=== PATIENT | male | born 1960 | race Caucasian/White ===

== ENCOUNTER → 2017-06-18 | Outpatient (CLI) | payer OTHER ==
--- NOTE | 2017-06-18 14:49 | DIAGNOSTIC IMAGING REPORT ---
Napoleon BAKER SHLDR,HIP,KNEE CLINICAL HISTORY: 56 years-old Male presenting with DJD RT HIP. COMPARISON: None. PROCEDURE: The risks, benefits, and alternatives to the procedure were discussed with the patient. Written informed consent was obtained. The patient was placed supine on the fluoroscopy table, and a right hip injection was performed under fluoroscopic guidance. The area was prepped and draped in the usual sterile fashion. The skin and soft tissues anesthetized with local 1% lidocaine. The right hip joint was accessed utilizing a 22-gauge needle. Approximately 1 mL of Optiray 300 was injected into the joint space under fluoroscopic guidance to confirm intra-articular positioning. Subsequently, a 10 mL mixture containing 8 mL of 0.5% Bupivacaine and 2 mL of betamethasone was injected into the joint. The procedure was well tolerated without immediate complication. Fluoroscopy dosage (mGy): Not available. Fluoroscopy time: 15 seconds. Number of fluoroscopic spot images: 0. IMPRESSION: Successful injection of the right hip under fluoroscopic guidance. Electronically signed by: Vern Turcios M.D. 06/18/2017 2:48 PM Dictated Date/Time: 06/18/2017 2:47 PM
== END | disposition home or self-care (01) ==
LOC: C.RADBC 14:07
PROVIDERS: ATTEND Orthopaedic Surgery
DX: M16.11 Unilateral primary osteoarthritis, right hip (principal)

== ENCOUNTER 2019-01-24 09:01 | Inpatient (IN) ==
--- NOTE | 2018-12-29 08:42 | PAT Medication Instructions ---
Medication Instructions Date of Service December 29, 2018 Home Medications ibuprofen [Advil] 600 mg PO Q6H PRN meloxicam 15 mg PO QAM multivitamin 1 tab PO QAM omega 6-bfj-sqi-fish oil [Fish Oil] 1 cap PO QAM pantoprazole 40 mg PO BID ASK your surgeon for instructions ibuprofen [Advil] 600 mg PO Q6H PRN meloxicam 15 mg PO QAM STOP taking 2 weeks before surgery (or as soon as possible if surgery is within 2 weeks) omega 4-dzr-zfu-fish oil [Fish Oil] 1 cap PO QAM DO NOT take the morning of surgery multivitamin 1 tab PO QAM Take morning of surgery With a small sip of water, OTHERWISE NOTHING TO EAT OR DRINK AFTER MIDNIGHT: pantoprazole 40 mg PO BID Take evening before surgery pantoprazole 40 mg PO BID Other Notes If you have any questions please call us at [phone] or [phone] or [phone] or [phone]
--- NOTE | 2018-12-29 11:26 | Anesthesiology Consultation ---
Date of Service December 29, 2018 Assessment & Plan (1) Encounter for pre-operative examination: Abnormal preop EKG: reviewed with Dr. Liu- recommendation for PCP to review/comment if further cardiac evaluation/testing needed from their perspective. PCP reviewed- recommended stress test prior to surgery (done 01/09/19- no evidence of ischemia). Reviewed by PCP: "okay to clear." Chart Review Chart Review: Acceptable Risk for Surgery and Patient seen in Pre Admission Testing Teaching & Discussion Pre-Anesthesia Teaching/Discussion Notes: Instructed NPO after midnight before surgery,except medications with 15 cc of water. Medication instructions provided according to the PAT guidelines. History Surgery Operation Date: 01/24/19 07:15 Proposed Procedures p Right Anterior Total Hip Arthroplasty - Roberto Espinal DO Height/Weight Height: 6 ft Weight: 88.3 kg Allergies Allergy/AdvReac Type Severity Reaction Status Date / Time No Known Allergies Allergy Verified 12/20/18 09:05 Medications Home Medications Medication Instructions Recorded Confirmed Last Taken ibuprofen [Advil] 600 mg PO Q6H PRN 12/20/18 12/20/18 Unknown meloxicam 15 mg PO QAM 12/20/18 12/20/18 Unknown multivitamin 1 tab PO QAM 12/20/18 12/20/18 Unknown omega 2-cth-tzm-fish oil [Fish Oil] 1 cap PO QAM 12/20/18 12/20/18 Unknown pantoprazole 40 mg PO BID 12/20/18 12/20/18 Unknown Past Medical History Medical History GERD (gastroesophageal reflux disease) controlled Hiatal hernia Osteoarthritis Exercise / Class Metabolic Activity II 4-5 Yardwork/Stairs/Walk up hill Past Family History Family History Mother Family history of diabetes mellitus Past Surgical History Surgical History History of colonoscopy History of esophagogastroduodenoscopy (EGD) Hx of vasectomy Past Anesthesia History No Hx of Anesthesia Complications and No Family Hx of Anesthesia Complications History of PONV No Hx of PONV and No Hx of Motion Sickness Social History Smoking Status: Never smoker Do You Dip or Chew Tobacco: No Hx Alcohol Use: Yes Alcohol type: beer, wine and hard liquor alcohol intake frequency: a few times a week Hx Substance Use: No Review of Systems Reflux controlled. Patient denies chest pain, shortness of breath, dyspnea on exertion, cough, wheezing, palpitations. Physical Exam Vital Signs VITALS BP 120/76 P 62 TEMP 98.4 SP02 97%RA RESP 16 PHYSICAL Full neck and c-spine range of motion. Full TMJ range of motion. TMD 3 finger breaths Mallampati Score 2 Dentition: intact, crown on side Lungs: clear throughout to auscultation Cardiac: regular rate and rhythm, no murmurs noted Spine: normal Carotid arteries: negative bruit Extremities: no edema Testing Laboratory Results Blood Type O Positive 12/29/18 11:52 Antibody Screen NEGATIVE 12/29/18 11:52 12/30/18 WBC 7.8 H/H 15.6/45.8 PLATELETS 230 SODIUM 137 POTASSIUM 4.1 CHLORIDE 101 CO2 30 BUN 21 CREATININE 1.22 GLUCOSE 88 PT 11.3 PTT 30.5 INR 1.1 HGBA1C 5.2% UA negative Electrocardiogram Date: 12/29/18 SR with PAC's at 65bpm. TWA, consider lateral ischemia. *Prolonged QT* Chest X-Ray Date: 12/29/18 Findings: + NAD Stress Test Date: 01/09/19 Type: exercise Stress ECHO/EKG negative for inducible ischemia. LVEF 60-64%. Grade I DD. Mild MR. 96% MPHR. 11.7 METS.
--- NOTE | 2018-12-29 12:20 | XRay Report ---
XR chest Pre-admission PA/Lat CLINICAL HISTORY: pat preoperative evaluation COMPARISON STUDY: No previous studies for comparison. FINDINGS: The bones soft tissues and hemidiaphragms are normal. The cardiomediastinal silhouette is n ormal. The lungs are clear. The pulmonary vasculature is normal. IMPRESSION: Negative chest. The above report was generated using voice recognition software. It may contain grammatical, syntax or spelling errors. Electronically signed by: Blaise Nolan M.D. 12/29/2018 12:18 PM
--- NOTE | 2019-01-23 13:37 | History & Physical Report ---
Date of Service January 23, 2019 Assessment & Plan (1) Degenerative joint disease of right hip: I have indicated the patient for right anterior total hip replacement. The risks, benefits and complications of surgery were explained to the patient which include but not limited to infection, acute blood loss, DVT/PE, injury to nerves, vessels, bone, soft tissue, arthrofibrosis, chronic pain, failure of the prosthesis, hip dislocation, leg length discrepancy, need for additional surgery, cardiac and pulmonary events and . The patient wished to proceed with surgery and informed consent was obtained at this time. We will plan for ASA BID post-operatively for DVT prophylaxis. Upon discharge the patient will be discharged home with home health services. Appropriate clearances by PCP were obtained. History of Present Illness Chief Complaint: Right hip pain/djd Primary Care Provider: Sin Coombs DO The patient is a 58 year old male who presents with complaints of severe right hip pain and DJD. The patient has failed outpatient conservative treatments to this point which included NSAIDs, IA corticosteroid inj, home exercise/walking program. The patient's pain and limited function have progressed to the point where they severely hinder their activities of daily living and they no longer tolerate exercise programs. They are requesting to proceed with total hip replacement surgery. Allergies Allergy/AdvReac Type Severity Reaction Status Date / Time No Known Allergies Allergy Verified 01/24/19 09:24 Home Medications Home Medications Medication Instructions Recorded Confirmed Type ibuprofen [Advil] 600 mg PO Q6H PRN 12/20/18 12/20/18 History meloxicam 15 mg PO QAM 12/20/18 12/20/18 History multivitamin 1 tab PO QAM 12/20/18 12/20/18 History omega 5-vrt-vpz-fish oil [Fish Oil] 1 cap PO QAM 12/20/18 12/20/18 History pantoprazole 40 mg PO BID 12/20/18 12/20/18 History Past Med/Surg History Medical History GERD (gastroesophageal reflux disease) controlled Hiatal hernia Osteoarthritis Surgical History History of colonoscopy History of esophagogastroduodenoscopy (EGD) Hx of vasectomy Family History Mother Family history of diabetes mellitus Social History Preferred Language: Macedonian Communication Ability: Effective 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 Beliefs That Will Affect Care: None Current Living Situation: Spouse Other Information That Helps Us Care for You: No Feels Safe at Home: Yes Safety Concerns: Feels Safe At This Time Smoking Status: Never smoker Do You Dip or Chew Tobacco: No ; Second Hand Exposure: No ; Hx Alcohol Use: Yes Alcohol type: beer, wine and hard liquor Hx Substance Use: No Review of Systems Review of Systems: All systems reviewed & are unremarkable except as noted in HPI & below Constitutional: as per Subjective / HPI Physical Exam Physical Exam: RLE NVSI +EHL/FHL/TA/GS SILT grossly, +2 DP pulse, compartments soft NT, limited painful ROM of the hip, antalgic gait. Constitutional: WD/WN, vitals as above Eyes: PERRL, conjunctivae normal, anicteric sclerae ENMT: external ear and nose normal, oropharynx normal Neck: trachea midline, no thyromegaly Respiratory: normal respiratory effort, lungs clear to auscultation Cardiovascular: RRR, no murmur, no edema Gastrointestinal (Abdomen): normal bowel sounds, soft, nontender, no hepatosplenomegaly Musculoskeletal: no cyanosis or clubbing, extremities motor strength 5/5 Skin: no rashes, warm and dry Neurologic: patellar DTR's 2+ bilat, sensation intact Psychiatric: A+Ox3, euthymic affect Lymphatic: no cervical or axillary lymphadenopathy Results & Data Diagnostic Findings Multiple views of the hip demonstrates severe DJD with complete loss of the joint space. +osteophytes, +sclerosis, +subchondral cysts.
[~2019-01-24 09:01] MED LIST: ACETAMINOPHEN 500 MG TAB PO SCH; BUPIVACAINE 0.5 % 5 MG/1 ML PF 10ML VIAL ONE; CEFAZOLIN 2000MG 2,000 MG/15 ML SYR IV SCH; CeleBREX 200 MG CAP PO SCH; FAMOTIDINE 20 MG TAB PO SCH; GABAPENTIN 600 MG DOSE PO SCH; LR 500ML BOLUS, THEN 15ML/HR IV SCH; METOCLOPRAMIDE HCL 10 MG TABLET PO SCH; ROPIVACAINE 0.5% HCL/PF 150 MG, BUPIVACAINE 0.5% MPF 30 ML, EPINEPHrine 30MG/30ML (OR U... INSTIL SCH; TRANEXAMIC ACID 1,000 MG **IV Intra-op IV SCH; TRANEXAMIC ACID 1,000 MG **IV Pre-op IV SCH; dexAMETHasone 4 MG TAB PO SCH
--- NOTE | 2019-01-24 09:25 | History & Physical Bridge Note ---
Date of Service January 24, 2019 History & Physical Bridge Note I have examined the patient, reviewed the History & Physical and in the interval since the performance of the History & Physical I have noted the following changes of clinical significance: no changes noted
[2019-01-24] MEDS ORDERED: MIDAZOLAM HCL 1 MG/ML 2ML VIAL ONE ×2 (09:36)
[2019-01-24] MEDS ORDERED: fentaNYL citrate 100 MCG/2 ML VIAL ONE (09:36)
[2019-01-24] MEDS ORDERED: ORTHO JOINT ANESTHETIC ONE (09:37)
[2019-01-24] MEDS ORDERED: BACITRACIN INJ 50,000 UNIT VIAL ONE (09:37)
[2019-01-24] MEDS ORDERED: PHENYLEPHRINE 100MCG/ML 5ML SYR IV PRN (11:15)
[2019-01-24] MEDS ORDERED: ATROPINE SULFATE 0.1 MG/ML 10ML SYR IV PRN (11:15)
[2019-01-24] MEDS ORDERED: KETOROLAC 30 MG/ML VIAL IV PRN (11:15)
[2019-01-24] MEDS ORDERED: HYDROmorphone INJ 1 MG/ML SYRINGE IV PRN (11:15)
[2019-01-24] MEDS ORDERED: ONDANSETRON INJ 2 MG/ML 2 ML VIAL IV PRN ×2 (11:15→14:56)
[2019-01-24] MEDS ORDERED: ePHEDrine sulfate 50 MG/ML AMP IV PRN (11:15)
[2019-01-24] MEDS ORDERED: ePHEDrine sulfate 50 MG/ML SYR ONE (12:02)
[2019-01-24] MEDS ORDERED: PROPOFOL IV EMULSION 10 MG/ML 20 ML VIAL IV ONE (12:02)
[2019-01-24] MEDS ORDERED: LIDOCAINE HCL 2% 2 ML VIAL/AMP(20MG/ML) INFIL ONE (12:02)
--- NOTE | 2019-01-24 13:15 | Post Operative Brief Note ---
Immediate Post Op Note v1 Date of Surgery January 24, 2019 Pre & Post Diagnosis Operation Date: 01/24/19 11:25 Pre-Op Diagnosis: Unilateral Primary Osteoarthritis, Right Hip Post-Op Diagnosis: Unilateral Primary Osteoarthritis, Right Hip Procedure Operation Date: 01/24/19 11:25 Actual Procedures p Right Anterior Total Hip Arthroplasty(Right) - Roberto Espinal DO Surgeon Roberto Espinal DO Music Orchestrator Rian Arreola Estimated Blood Loss 225 Findings Consistent with Post-Op Diagnosis Fluids 1500 cc LR Specimens femoral head Anesthesia Type Spinal MAC Complications none Disposition Disposition: Recovery Room Overlapping Procedure I was present for: the critical portions of procedure. I was immediately available: during the entire case. Back up surgeon: was not required during procedure.
--- NOTE | 2019-01-24 13:27 | Fluoroscopy Report ---
FL hip RT 1V HISTORY: 58 years-old Male RT ANTERIOR HIP chronic right hip pain with degenerative joint disease. R ight hip total joint arthroplasty COMPARISON: Fluoroscopic images of the right hip 06/18/2017 TECHNIQUE: 2 spot fluoroscopic images of the right hip were obtained utilizing 45.3 seconds fluorosco py time FINDINGS: Right hip total joint arthroplasty appears to be in satisfactory positioning. No acute fracture. Surg ical clips project over the pelvis. Expected postsurgical soft tissue swelling and deep tissue air ab out the right hip. Left hip osteoarthritis incidentally noted. IMPRESSION: Satisfactory alignment of the right hip total joint arthroplasty. The above report was generated using voice recognition software. It may contain grammatical, syntax o r spelling errors. Electronically signed by: Deshaun Luevano M.D. 01/24/2019 1:26 PM
--- NOTE | 2019-01-24 13:29 | Operative Report ---
Post Operative Report Pre & Post Diagnosis Operation Date: 01/24/19 11:25 Pre-Op Diagnosis: Unilateral Primary Osteoarthritis, Right Hip Post-Op Diagnosis: Unilateral Primary Osteoarthritis, Right Hip Procedure Operation Date: 01/24/19 11:25 Actual Procedures p Right Anterior Total Hip Arthroplasty(Right) - Roberto Espinal DO Surgeon Roberto Espinal DO Eyeletter Rian Arreola Estimated Blood Loss 225 Findings Consistent with Post-Op Diagnosis Fluids 1500 cc LR Specimens femoral head Anesthesia Type Spinal MAC Complications none Disposition Disposition: Recovery Room Indications The patient is a 58-year-old male who presents with severe progressive right hip DJD who has failed outpatient conservative treatments. I indicated the patient for a anterior total hip replacement and the risks and benefits were explained in detail which include but not limited to infection, bleeding, blood clot, damage to surrounding bone, nerves, vessels, soft tissue, hip dislocation, failure of the prosthesis, leg length discrepancy, need for additional surgery and . The patient agreed to proceed with replacement of the hip and informed consent was obtained. Appropriate clearances were obtained. Description of Procedure COMPONENTS USED: [employer] hip system: Acetabulum size 54, femur size 9 standard offset, femoral head 36-3, liner 3654, acetabular screw 25 mm x 1. DESCRIPTION OF PROCEDURE: Following satisfactory spinal anesthesia, the patient was placed supine on the OR table. The left leg was placed in the well leg medeiros and the right leg in the traction device. The right leg was prepared with ChloraPrep and draped sterilely. A surgical timeout was performed, patient identified and site mayito verified. Appropriate antibiotics were given. A standard anterior approach in the interval between the sartorius and tensor muscles was performed. Dissection was carried down through subcutaneous tissues. Electrocautery was utilized for hemostasis. Circumflex femoral vessels were identified, tied and ligated. The anterior capsular fat pad was removed and the capsulotomy was performed revealing the arthritic femoral neck and head. A femoral neck cut was made with reciprocating saw and the bone fragments removed. The acetabular self-retraining retractor was placed. Acetabular reaming was completed under fluoroscopic guidance, a 54 shell was impacted into an anatomic position and secured with a dome screw. Local anesthetic was placed and following irrigation, the polyethylene liner was placed. The femur was placed into position of external rotation, extension and adduction. Femoral canal was prepared up to the size 9 standard offset. Trial reduction with a -3 neck length head showed good soft tissue tension, leg lengths restored, and good fit and fill of the proximal canal using fluoroscopic landmarks. The hip was dislocated. The trial component was removed. The final implant was placed. The hip was irrigated with sterile saline solution and reduced. A Betadine soak was performed. After 3 minutes, the hip was once more irrigated with copious sterile saline solution with bacitracin. Rabia-incisional soft tissue was injected utilizing [place] [employer] which includes a combination of Ropivicaine 0.5% 150mg, Bupivicaine 0.5%/Epinephrine 1:200,000 30ml, Toradol 30mg, Dexamethasone 4mg, Ketamine 10mg, Clonidine 100mcg and NSS 30ml solution. The capsule was then closed with 1-0 Vicryl interrupted figure of eight sutures. The fascia was closed with a running suture of #1 Vicryl, the subcutaneous tissues with 2-0 Vicryl and the skin with a running subcuticular stitch of 3-0 V-Loc. Dermabond prineo and a dry dressing were applied. The patient tolerated the procedure well and was transported to PACU in stable condition. Due to the complex nature of the procedure, the entire surgery was performed with the operational assistance of Rian Arreola PA-C. The assistant professor nurse education, under direct supervision, was involved in the actual performance of all aspects of the surgical procedure including patient positioning, hemostasis, tissue retraction, instrument management and wound closure. I attest to the content of the Intraoperative Record and any orders documented therein. Any exceptions are noted below.
--- NOTE | 2019-01-24 14:20 | XRay Report ---
XR hip 1V RT w pelvis CLINICAL HISTORY: 58 years-old Male presenting with IN PACU - A/P PELVIS and LATERAL HIP . TECHNIQUE: Single frontal view of the pelvis and crosstable lateral view of the right hip were obtain ed. COMPARISON: Fluoroscopic images from earlier the same day. FINDINGS: Postsurgical changes of total right hip arthroplasty. No periprosthetic fracture or malalignment. Ove rlying soft tissue emphysema. Remainder of the bony pelvis intact. Vasectomy clips noted. IMPRESSION: Expected postsurgical appearance status post total right hip arthroplasty. Electronically signed by: Vern Turcios M.D. 01/24/2019 2:19 PM
--- NOTE | 2019-01-24 14:46 | Anesthesiology Progress Note ---
Date of Service January 24, 2019 Anesthesia Post Procedure Vital Signs Vital Signs: Temp Pulse Pulse Resp BP Pulse Ox 01/24/19 14:20 36.5 C 65 18 114/69 98 01/24/19 14:10 65 21 115/65 97 01/24/19 14:00 65 15 105/75 97 01/24/19 13:50 63 21 114/66 97 01/24/19 13:43 36.3 C L 65 15 115/69 97 01/24/19 09:22 36.8 C 76 20 131/81 99 Pain Intensity Right Hip: Pain Intensity: 0 Transfer of Care Handoff Completed per policy Notes Mental Status: alert / awake / arousable Patient Amnestic to Procedure: Yes Nausea / Vomiting: adequately controlled Pain: adequately controlled Airway Patency, RR, SpO2: stable & adequate BP & HR: stable & adequate Hydration State: stable & adequate Neuraxial Anesthesia: was administered and sensory block is resolving Anesthetic Complications: no major complications apparent
[2019-01-24] MEDS ORDERED: SODIUM CHLORIDE 0.9% 1000ML 1,000 ML IV SCH (14:56)
[2019-01-24] MEDS ORDERED: HYDROmorphone INJ 0.5 MG/0.5 ML SYR IV PRN (14:56)
[2019-01-24] MEDS ORDERED: NALOXONE HCL 0.4 MG/1 ML VIAL/CARP IV PRN (14:56)
[2019-01-24] MEDS ORDERED: METOCLOPRAMIDE HCL INJ 5 MG/ML 2 ML VIAL IV PRN (14:56)
[2019-01-24] MEDS ORDERED: bisacodyL 10 MG SUPP PR PRN (14:56)
[2019-01-24] MEDS ORDERED: MAGNESIUM HYDROXIDE SUSP 30 ML UDC PO PRN (14:56)
--- NOTE | 2019-01-24 17:36 | Orthopedic Progress Note ---
Date of Service January 24, 2019 Assessment & Plan (1) Degenerative joint disease of right hip: s/p R anterior JAY -ancef x 24 -DVT ppx: SCDs, TEDs, ASA 81mg BID -WBAT RLE -PT/OT -PO XR demonstrates a well aligned well fixed prosthesis without fracture/dislocation -am labs -DC planning Subjective Post Operative Progress Note Patient seen sitting up in bed, comfortable, denies complaints, pain well controlled, no acute issues. Still feeling effects of spinal anesthesia. Review of Systems Review of Systems: All systems reviewed & are unremarkable except as noted in HPI & below Physical Exam Physical Exam: RLE PE limited secondary to spinal anesthesia, +2 DP pulse, compartments soft NT, dressing cdi Constitutional: WD/WN, vitals as above Results & Data Vital Signs (Past 12 Hours) Vital Signs Temp Pulse Pulse Pulse Resp BP Pulse Ox 01/24/19 16:47 36.9 C 63 16 139/86 100 01/24/19 15:45 65 15 135/81 100 01/24/19 15:06 36.4 C L 64 16 125/79 97 01/24/19 14:45 36.7 C 68 14 116/75 98 01/24/19 14:20 36.5 C 65 18 114/69 98 01/24/19 14:10 65 21 115/65 97 01/24/19 14:00 65 15 105/75 97 01/24/19 13:50 63 21 114/66 97 01/24/19 13:43 36.3 C L 65 15 115/69 97 01/24/19 09:22 36.8 C 76 20 131/81 99
[2019-01-24] MEDS: ACETAMINOPHEN 500 MG TAB PO SCH (19:43)
[2019-01-24] MEDS: KETOROLAC TROMETHAMINE 15 MG/ML VIAL IV SCH ×2 (19:44→22:49)
[2019-01-24] MEDS: CEFAZOLIN 2000MG 2,000 MG/15 ML SYR IV SCH (19:44)
[2019-01-24] MEDS: DOCUSATE SODIUM 100 MG CAP PO SCH (20:23)
[2019-01-24] MEDS: ASPIRIN 81 MG ECTAB PO SCH (20:24)
[2019-01-24] MEDS: PANTOprazole 40 MG TAB PO SCH (20:24)
[2019-01-24] MEDS ORDERED: SENNA 8.6 MG TAB PO SCH (21:00)
[2019-01-25] MEDS: OXYCODONE HCL IR 5 MG TAB (IMMEDIATE RELEASE) PO PRN ×2 (00:50→08:58)
[2019-01-25] MEDS: CEFAZOLIN 2000MG 2,000 MG/15 ML SYR IV SCH (04:17)
[2019-01-25] MEDS: KETOROLAC TROMETHAMINE 15 MG/ML VIAL IV SCH ×2 (04:17→09:00)
[2019-01-25 05:57] LABS: Basophils # (auto) 0.01 K/uL (0-0.2); Basophils % (auto) 0.1 %; Hematocrit (blood only) 36.3 % (42-52); Hemoglobin 12.4 g/dL (14.0-18.0); Immature Granulocytes # (auto) 0.03 K/uL (0.00-0.02); Immature Granulocytes % (auto) 0.2 %; Lymphocytes % (auto) 6.2 %; Mean Corpuscular Hemoglobin 30.7 pg (25-34); Mean Corpuscular Hgb Conc 34.2 g/dL (32-36); Mean Corpuscular Volume 89.9 fL (80-100); Mean Platelet Volume 10.8 fL (7.4-10.4); Monocytes # (auto) 1.08 K/uL (0.11-0.59); Monocytes % (auto) 7.5 %; Neutrophils # (auto) 12.43 K/uL (1.4-6.5); Platelet Count 199 K/uL (130-400); RDW Coefficient of Variation 12.4 % (11.5-14.5); RDW Standard Deviation 40.7 fL (36.4-46.3); Red Blood Count 4.04 M/uL (4.7-6.1); White Blood Count 14.45 K/uL (4.8-10.8)
[2019-01-25] MEDS: ACETAMINOPHEN 500 MG TAB PO SCH ×2 (06:10→14:03)
[2019-01-25 06:31] LABS: BUN Creatinine Ratio 14.5 (10-20); Creatinine Clr Calc Pharmacy 77.4 ml/min; Est GFR (African American) 80.3; Est GFR (Non-African American) 69.3; Potassium 4.3 mmol/L (3.5-5.1)
[2019-01-25] MEDS: ASPIRIN 81 MG ECTAB PO SCH (08:05)
[2019-01-25] MEDS: PANTOprazole 40 MG TAB PO SCH (08:05)
[2019-01-25] MEDS: DOCUSATE SODIUM 100 MG CAP PO SCH (08:05)
--- NOTE | 2019-01-25 08:45 | Anesthesiology Progress Note ---
Date of Service January 25, 2019 Anesthesia Post Procedure Vital Signs Vital Signs: Temp Pulse Pulse Pulse Resp BP Pulse Ox 01/25/19 07:31 36.6 C 59 L 16 121/79 100 01/25/19 04:12 36.8 C 70 16 120/72 99 01/24/19 22:57 36.6 C 69 16 113/69 96 01/24/19 21:23 36.6 C 74 16 127/68 98 01/24/19 17:52 36.5 C 67 16 113/71 98 01/24/19 16:47 36.9 C 63 16 139/86 100 01/24/19 15:45 65 15 135/81 100 01/24/19 15:06 36.4 C L 64 16 125/79 97 01/24/19 14:45 36.7 C 68 14 116/75 98 01/24/19 14:20 36.5 C 65 18 114/69 98 01/24/19 14:10 65 21 115/65 97 01/24/19 14:00 65 15 105/75 97 01/24/19 13:50 63 21 114/66 97 01/24/19 13:43 36.3 C L 65 15 115/69 97 01/24/19 09:22 36.8 C 76 20 131/81 99 Pain Intensity Right Hip: Pain Intensity: 1 Notes Mental Status: alert / awake / arousable and participated in evaluation Patient Amnestic to Procedure: Yes Nausea / Vomiting: adequately controlled Pain: adequately controlled Airway Patency, RR, SpO2: stable & adequate BP & HR: stable & adequate Hydration State: stable & adequate Neuraxial Anesthesia: was administered and sensory block resolved Anesthetic Complications: no major complications apparent and Pt Satisfied with anesthetic care
[2019-01-25] MEDS ORDERED: MULTIVITAMIN TAB PO SCH (09:00)
--- NOTE | 2019-01-25 09:33 | Orthopedic Progress Note ---
Date of Service January 25, 2019 Assessment & Plan (1) Degenerative joint disease of right hip: s/p R anterior JAY POD#1 -ancef x 24 -DVT ppx: SCDs, TEDs, ASA 81mg BID -WBAT RLE -PT/OT -PO XR demonstrates a well aligned well fixed prosthesis without fracture/dislocation -am labs - hgb 12.4 -DC planning home with HH Subjective Post Operative Progress Note Patient seen sitting up in bed, comfortable, denies complaints, pain well contro lled, no acute issues. Denies F/C/N/V/SOP/CP Review of Systems Review of Systems: All systems reviewed & are unremarkable except as noted in HPI & below Constitutional: as per Subjective / HPI Physical Exam Physical Exam: RLE NVSI +EHL/FHL/TA/GS SILT grossly, +2 DP pulse, compartments soft NT, dressing cdi. Constitutional: WD/WN, vitals as above Results & Data Vital Signs (Past 12 Hours) Vital Signs Temp Pulse Resp BP Pulse Ox 01/25/19 07:31 36.6 C 59 L 16 121/79 100 01/25/19 04:12 36.8 C 70 16 120/72 99 01/24/19 22:57 36.6 C 69 16 113/69 96 Laboratory Results 01/25/19 01/25/19 01/25/19 Range/Units 05:37 05:37 05:37 WBC 14.45 H (4.8-10.8) K/uL RBC 4.04 L (4.7-6.1) M/uL Hgb 12.4 L (14.0-18.0) g/dL Hct 36.3 L (42-52) % MCV 89.9 (80-100) fL MCH 30.7 (25-34) pg MCHC 34.2 (32-36) g/dL RDW Std Deviation 40.7 (36.4-46.3) fL RDW Coeff of Kamille 12.4 (11.5-14.5) % Plt Count 199 (130-400) K/uL MPV 10.8 H (7.4-10.4) fL Immature Gran % (Auto) 0.2 % Neut % (Auto) 86.0 % Lymph % (Auto) 6.2 % [place] % (Auto) 7.5 % Eos % (Auto) 0.0 % Baso % (Auto) 0.1 % Immature Gran # (Auto) 0.03 H (0.00-0.02) K/uL Neut # (Auto) 12.43 H (1.4-6.5) K/uL Lymph # (Auto) 0.90 L (1.2-3.4) K/uL [place] # (Auto) 1.08 H (0.11-0.59) K/uL Eos # (Auto) 0.00 (0-0.5) K/uL Baso # (Auto) 0.01 (0-0.2) K/uL Sodium 138 (136-145) mmol/L Potassium 4.3 (3.5-5.1) mmol/L Chloride 106 (98-107) mmol/L Carbon Dioxide 26 (21-32) mmol/L Anion Gap 6.0 (3-11) BUN 17 (7-18) mg/dl Creatinine 1.17 (0.6-1.4) mg/dl Est Cr Clr Drug Dosing 77.4 ml/min Est GFR ( Amer) 80.3 Est GFR (Non-Af Amer) 69.3 BUN/Creatinine Ratio 14.5 (10-20) Glucose 117 H (70-99) mg/dl Calcium 9.0 (8.5-10.1) mg/dl Hepatitis C Ab Screen Neg (Neg)
[2019-01-25] MEDS ORDERED: CeleBREX 200 MG CAP PO SCH (21:00)
--- NOTE | 2019-01-29 11:36 | Discharge Summary ---
Date of Service January 29, 2019 Admission HPI Per Admitting Provider The patient is a 58 year old male who presents with complaints of severe right hip pain and DJD. The patient has failed outpatient conservative treatments to this point which included NSAIDs, IA corticosteroid inj, home exercise/walking program. The patient's pain and limited function have progressed to the point where they severely hinder their activities of daily living and they no longer tolerate exercise programs. They are requesting to proceed with total hip replacement surgery. Principal Diagnosis Right anterior total hip replacement Discharge Exam RLE NVSI +EHL/FHL/TA/GS SILT grossly, +2 DP pulse, compartments soft NT, dressing cdi. Constitutional WD/WN, vitals as above Discharge Data Allergies Allergy/AdvReac Type Severity Reaction Status Date / Time No Known Allergies Allergy Verified 01/24/19 09:24 Consultations 01/25/19 08:00 Consult Case Management - Discharge Planning Routine Procedures Performed Operation Date: 01/24/19 11:25 Actual Procedures p Right Anterior Total Hip Arthroplasty(Right) - Roberto Espinal DO Ordered Studies 01/24/19 11:25 FL fluoroscopy <1hr Routine FL hip RT 1V Routine Hospital Course (1) Degenerative joint disease of right hip: The patient is a 58 -year-old male who presents with long standing history of severe right hip DJD and failed outpatient conservative treatments including NSAIDs, bracing, injections and home walking/exercise program. The patient's symptoms have progressed to the point where it has been difficult to perform antwon n normal activities of daily living. I indicated the patient for a right anterior total hip arthroplasty, the risks, benefits and complications of the procedure include but not limited to infection , bleeding, damage to bone, nerves, vessels, surrounding soft tissue, may develop blood clots, loss of function, leg length discrepancy, dislocation, failure of the components, loosening of the components, the need for additional surgery and . The patient wished to proceed with surgery at this time and informed consent was obtained. Hospital Course: On 01/24/19 the patient was taken to the operating room, adequate anesthesia administered and underwent a right anterior total hip arthroplasty. The patient tolerated the procedure well and was taken to the PACU in stable condition. Pos t-operatively the patient was started on a DVT ppx medication and given appropriate IV antibiotics. Consults were placed to physical therapy, occupational therapy and case management. On POD#1, the patient did well overnight and their pain was well controlled. Labs were drawn and the Hgb was 12.4. The patient progressed well with PT. Dressings were changed at this time and the incision was clean, dry and intact. The patients hospital stay was relatively uneventful and they were deemed stable by the orthopedic team and consultants to be discharged home with HH on 01/25/19. Discharge Instructions: Upon discharge the patient may weight bear as tolerates through their operative extremity. They were instructed to keep the incision clean and dry at all times. The patient may shower but should not submerge the incision, avoid bathing, pools and hot tubes. The patient was given a script for pain medication and should take as instructed. The patient was given a script for DVT ppx ASA 81mg BID and should take as directed. The patient was instructed to not drive or travel for long distances until cleared to do so. If the patient develops any symptoms of fevers, chills, nausea, vomiting, increased redness, swelling, pain or drainage from the surgical site, they should notify the office and/or proceed to the nearest emergency room. The patient should follow up in 10-14 days after surgery for their routine post-operative follow-up appointment and should call the office to confirm the date and time. s/p R anterior JAY POD#1 -ancef x 24 -DVT ppx: SCDs, TEDs, ASA 81mg BID -WBAT RLE -PT/OT -PO XR demonstrates a well aligned well fixed prosthesis without fracture/dislocation -am labs - hgb 12.4 -DC planning home with HH Total Time Total Time Spent Total Time Spent (In Minutes): 30 minutes Total Time Includes: Examination of the Patient, Discharge Planning, Medication Reconciliation and Communication With Other Providers Discharge Plan Discharge Items Patient Disposition: Home - Home Health Services Reason For Visit: Unilateral Primary Osteoarthritis, Right Hip Discharge Diagnosis: Right anterior total hip replacement Condition on Discharge: Good Activity: Per Instructions section Lifting: Wait until after follow-up appointment Bathing: Keep incision dry Bathing Comment: No bathing, pools or hot tubs. Sexual Activity: Wait until after follow-up appointment Exercise/Sports: Wait until after follow-up appointment Driving/Machine Use: No driving till cleared by your surgeon Weightbearing: Right weightbearing Non-emergency contact: Primary Care Provider and Surgeon Call non-emergency contact if: you have any medication questions, your symptoms worsen, your pain is not controlled, your pain is worsening, your pain is unusual for you, your pain is concerning for you, you have a fever, your temperature is above 101, your wound has increased redness, your wound has increased drainage and your wound pain has increased Follow-up/Referrals: Sin Coombs, [Primary Care Provider] - Diet: Regular Addtl Attending Provider Instructions: ACTIVITY RECOMMENDATIONS: SELF CARE INSTRUCTIONS AFTER TOTAL HIP REPLACEMENT : Direct Anterior Approach Until the incision and soft tissues around your hip have healed, there is a possibility that the hip prosthesis could dislocate. A. Hip flexion ( Up & Down out of chair or steps ) may be difficult. This is normal. B. Numbness in front of the thigh is also normal for a few weeks. C. Use hand rails when walking on stairs. D. Wear low heeled shoes with non-slip soles. E. Be sure that your floors are free of things that could trip you - throw rugs, electrical cords, small objects. Avoid wet and waxed floors, especially with crutches and canes. F. Try to walk several times a day with rest periods between. G. Continue with all the exercises taught to you in the hospital. Again, make walking a part of your daily routine. SPECIAL CARE INSTRUCTIONS: VERY IMPORTANT TO READ AND REVIEW A. You may still be at risk for phlebitis and blood clots. 1. Wear surgical stockings (ZAHRA hose) for 2 weeks after surgery to improve circulation and reduce swelling. 2. Take Aspirin 81mg twice daily for 4 weeks or as directed by your doctor. This is your blood thinner. 3. High risk patients may be prescribed a stronger blood thinner if necessary. 4. If you are on Coumadin normally, your family doctor/bin tripper operator should monitor your blood work. Expect a phone call the day of or the day a fter bloodwork is drawn to adjust your dosage. B. You must take antibiotics before having dental work, bladder, bowel and other surgery. Your doctor will provide you with a permanent card to carry describing precautions. C. Call [facility] if you have a fever, redness or swelling around the incision, cloudy drainage from incision, or sudden increase in pain in your hip, not relieved by your regular pain medication. D. Please call the office at if you have any concerns or questions about your operation or recovery. * YOU MAY SHOWER, NO TUB BATHS UNTIL CLEARED BY YOUR DOCTOR. - Keep an extra close eye on the top portion of your incision. Be sure to keep clean & dry. * WEAR ZAHRA HOSE 20 HOURS PER DAY FOR 2 WEEKS. * YOU MAY PROGRESS FROM A WALKER, TO A CANE, TO INDEPENDENT AT YOUR OWN PACE. * MOST PATIENTS WILL HAVE HOME NURSING FOR THERAPY. IF YOU DECIDE TO DO OUTPATIENT PHYSICAL THERAPY, PLEASE SCHEDULE THIS 3 TIMES PER WEEK. * DERMABOND Prineo- This is a mesh tape dressing that is covered with glue. It should remain in place until the incision is properly healed, usually 10-14 days. This dressing is designed to naturally slough off. You may trim the excess mesh tape as it peels off. Incision may be briefly wet in a shower. Dry immediately by blotting with a clean, dry towel. Do not bath or swim until instructed by your doctor. Do not scratch, rub, or pick at the dressing. Do not apply any topical ointments or lotions until dressing is completely removed and/or instructed by your doctor. There may be a small piece of suture material at one end of your incision. Do not pull or trim this. If it is bothersome or catching on clothing, you may cover it with a band-aid. FOLLOW UP VISIT: If appointment is not already scheduled: Please call [facility] to make a follow-up appointment for 2 weeks after your surgery at . Pending Studies at Discharge: No Stand-Alone Forms: My [facility], Opioid Pain Management Medications and DC Order Prescriptions: New acetaminophen [Tylenol Extra Strength] 500 mg Tablet 1,000 mg PO Q8 Qty: 90 RF: 0 celecoxib [Celebrex] 200 mg Capsule 200 mg PO BID PRN (Reason: pain) Qty: 28 RF: 0 aspirin [Ecotrin Low Strength] 81 mg Tablet,Delayed Release (Dr/Ec) 81 mg PO BID Qty: 56 RF: 0 oxycodone 5 mg Tablet 5 mg PO Q6H MDD 6 tabs PRN (Reason: pain) Qty: 30 RF: 0 sennosides [Senokot] 8.6 mg Tablet 17.2 mg PO HS PRN (Reason: constipation) Qty: 28 RF: 0 Continued multivitamin Tablet 1 tab PO QAM RF: 0 pantoprazole 40 mg Tablet,Delayed Release (Dr/Ec) 40 mg PO BID RF: 0 omega 5-zjb-ekj-fish oil [Fish Oil] 1,000 mg (120 mg-180 mg) Capsule 1 cap PO QAM RF: 0 Discontinued meloxicam 15 mg Tablet 15 mg PO QAM RF: 0 ibuprofen [Advil] 200 mg Tablet 600 mg PO Q6H PRN (Reason: Pain) RF: 0 Discharge Orders: Discharge Order (Routine); Ordered 01/25/19 Ordered By: Roberto Espinal Admission Data Admit Date/Time: 01/24/19 14:02 Attending Provider: Roberto Espinal Admit Provider: Roberto Espinal Primary Care Provider: Sin Coombs Other Interventions: Discharge Summary Assessment (RN) Last Done: 01/25/19 16:40 DC Date/Time DO NOT enter until pt leaves facility: 01/25/19 17:59
== END 2019-01-25 17:59 | disposition home health service (06) | DRG 470 ==
LOC: ASU 09:01 → 3E 14:02